=== PATIENT | male | born 1985 | race Caucasian/White ===

== ENCOUNTER 2023-12-18 22:50 | Emergency (ER) | payer OTHER ==
[2023-12-18] MEDS ORDERED: Dexamethasone 10 MG/ML VIAL ONE (23:59)
== END 2023-12-19 00:40 | disposition home or self-care (01) ==
LOC: CSHERS 22:50
DX: S90.562A Insect bite (nonvenomous), left ankle, initial encounter (principal); W57.XXXA Bitten or stung by nonvenomous insect and other nonvenomous arthropods, initial encounter
CPT/HCPCS: 96372; 99282; J1100